=== PATIENT | male | born 1960 | race Caucasian/White ===

== ENCOUNTER → 2018-02-24 | Outpatient (CLI) | payer BC, OTHER ==
[~2018-02-24] MED LIST: ASPIR 8181 MG PO; C-10001000 MG PO; COMPLEX B-1001 EACH PO; FLECAINIDE ACET50 M1 PO; LIPITOR 20 MG T20 M1 PO; OMEGA-31000 M1 PO; TOPROL XL25 MG PO; VITAMIN D3400 UNIT PO; XARELTO20 MG PO
[2018-02-24 08:19] LABS: HEMATOCRIT 43.8 % (42.0-52.0); HEMOGLOBIN 14.3 gm/dL (14.0-18.0); MCH 30.3 pg (26.0-34.0); MCHC 32.8 g/dL (28.0-37.0); MCV 92.4 fL (80.0-100.0); RBC 4.74 mil/uL (4.50-6.00); RDW 14.1 % (10.5-14.5); WBC 3.9 thou/uL (4.0-11.0)
[2018-02-24 08:23] LABS: CALCIUM 9.1 mg/dL (8.5-10.1); CREATININE 0.8 mg/dL (0.7-1.3)
== END ==
LOC: CAT 07:36
PROVIDERS: Internal Medicine Cardiovascular Disease
DX: I48.91 Unspecified atrial fibrillation (principal); M41.84 Other forms of scoliosis, thoracic region

== ENCOUNTER 2018-03-01 06:37 | Observation (INO) | payer BC, OTHER ==
[~2018-03-01] VITALS: Ht 193 cm; Wt 90.3 kg
[2018-03-01] VITALS (7 sets, daily range): BP systolic 104–123; BP diastolic 50–88
--- NOTE | ~2018-03-01 | P ---
[facility] [place] [address] PROCEDURE REPORT Name: OSWALDO QUIÑONES Room #: 219-P [facility] M..#: [id number] Admission: 03/01/18 Attend Phys: Bayron Dunlap MD Discharge: 03/02/18 Date of : 56 Report #: [id number] THIS REPORT FOR: //name// CC: Oswaldo Saba DATE OF SERVICE: 03/01/2018 PREOPERATIVE DIAGNOSIS: Paroxysmal atrial fibrillation. POSTOPERATIVE DIAGNOSIS: Paroxysmal atrial fibrillation. HISTORY: The patient is a 57-year-old with history of paroxysmal atrial fibrillation, here for AFib ablation. PROCEDURES PERFORMED: 1. AFib ablation, CPT code 19096. 2. Program stimulation and pacing after IV, CPT code 43009. 3. 3D mapping EP, CPT code 79606. 4. Intracardiac echo, CPT code 40756. ANESTHESIA: The patient underwent general anesthesia with no anesthesia related complications. DESCRIPTION OF PROCEDURE: The patient underwent informed consent where we discussed the details of the procedure including the risk, which include, but not limited to bleeding, vascular damage, cardiac perforation as well as stroke or KS. He understood these risks and was willing to proceed. The patient was brought to the EP laboratory in a fasting and sedated state and prepped and draped in a sterile fashion. I obtained access to the right femoral vein x 3, placing an 8-Italian, 9-Italian and 7-Italian short sheaths using the modified Seldinger technique. Next, under fluoroscopy, I placed a decapolar catheter into the coronary sinus. Of note, I had a difficult time maintaining the decapolar catheter in the coronary sinus. After I removed it for phrenic nerve pacing, I could not really get it to sit in the CS again. Next, intracardiac ultrasound camera was placed into the right atrium and I created a detailed 3D geometry of the left atrium using CartoSound. At baseline, the patient was in atrial fibrillation with a ventricular cycle length of 735 milliseconds, QRS duration of 75 milliseconds, and a QT interval of 465 milliseconds. His atrial activity in the coronary sinus was consistent with atrial fibrillation. The patient had a CT scan prior to the ablation that showed that the patient had a left common ostium, and a right superior and right inferior pulmonary veins. Using CartoSound I created a 3D geometry of the left atrium and merged this with the CT scan. Next, a transseptal was performed [address] [address] PROCEDURE REPORT Name: OSWALDO QUIÑONES Room #: 219-P [facility] Liza Arita#: [id number] Admission: 03/01/18 Attend Phys: Bayron Dunlap MD Discharge: 03/02/18 Date of : 56 Report #: [id number] using an SL1 sheath and a [place] needle. The transseptal was straightforward without any issues. Once I was in the left atrium, the patient did develop marked bradycardia down into the 20s and 30s in atrial fibrillation. As such, I did open up a bag of isoproterenol and then I quickly obtained access to the left femoral vein and placed a 6-Italian short sheath and a quadripolar catheter into the right ventricle for backup pacing. After about 2-3 minutes the pulse improved into the 50s-60s range. Intracardiac ultrasound was performed during this bradycardic episode and there was clearly no evidence of an effusion or anything. I think he likely had a vasovagal reaction, which may have been precipitated by the transseptal puncture. I then placed a Lasso catheter into the left atrium and created a detailed 3D geometry of the left atrium with specific emphasis of the left atrial appendage, left common ostium, which had a superior and inferior branch as well as the right superior and right inferior pulmonary veins. Next, I exchanged the SL1 sheath for the cryo sheath and placed the cryoballoon into the left atrium. I therefore started performing the ablation procedure. I first turned my attention to the left common pulmonary vein. I was able to place the balloon into the superior pole of this vein and performed two 4-minute freezes. I could tell that I was slowing down conduction, but had not resulted in isolation. I therefore attempted to place my Achieve catheter into the lower branch of the left common ostium, but it continued to go into the upper branch. I therefore pulled the balloon down and focused on isolating the lower pole of the left common ostium. I performed two 4-minute freezes within the lower aspect of this vessel and the vessel did isolate within 64 seconds of the first freeze of the left inferior aspect of the common ostium. I then interrogated both the upper and lower branches of the left common ostium using the Achieve catheter and this was clearly isolated. I then placed the decapolar catheter into the subclavian vessel and performed phrenic nerve pacing from here. I then placed the cryoballoon into the right superior pulmonary vein. I performed a 4-minute freeze. I could not monitor the electrograms during this freeze, but after this freeze it appeared that the ostium was isolated. I performed a second 3-minute freeze and then re-interrogated the vessel and it was clearly isolated as well. While I was freezing the right-sided veins, I performed phrenic nerve pacing and there was never any phrenic nerve compromise. I then turned my attention to the right inferior pulmonary vein and I performed two 4-minute freezes. This vein isolated within 30 seconds of the second freeze. Next, I removed the cryoballoon from the cryo sheath and placed a Lasso catheter into the left superior pulmonary vein. I then performed a 200 joule synchronized cardioversion with latter-day of sinus rhythm. In sinus rhythm, his sinus cycle length was 960 milliseconds, FL interval was 180, QRS duration was 70, QT interval was 415 milliseconds, AH interval was 95 milliseconds and his HV interval was 48 milliseconds. I then created a post-ablation voltage map and this demonstrated that we had performed a wide circumferential ablation of the left common ostium and the right-sided veins. It appeared that there was evidence of entrance and exit block. [facility] [address] [place] [address] PROCEDURE REPORT Name: OSWALDO QUIÑONES Room #: 219-P [facility] Allison.#: [id number] Admission: 03/01/18 Attend Phys: Bayron Dunlap MD Discharge: 03/02/18 Date of : 56 Report #: [id number] Next, a basic EP study was performed. Atrial burst pacing was performed from the high right atrium and AV block was noted at 450 milliseconds. AV darlene ERP was noted at 350 milliseconds at a [address] cycle length. There was no SVT or induction of atrial fibrillation. Next, isoproterenol infusion was turned on at 1 mcg per minute and AV block was noted at 440 milliseconds. Atrial burst pacing was performed and again I could not induce SVT nor atrial fibrillation. As such, using intracardiac ultrasound, I once again verified that there was no pericardial effusion. The patient then received systemic protamine and then when the ACT was within acceptable range, catheters and sheaths were pulled and hemostasis was obtained. The patient awoke neurologically and hemodynamically intact with no complications and no significant bleeding. CONCLUSIONS: 1. Successful atrial fibrillation ablation with isolation of the left common ostium in the right superior and right inferior pulmonary veins. 2. Normal SA darlene function. 3. Normal AV darlene function. 4. Normal His-Purkinje function. 5. No other inducible arrhythmias on or off isoproterenol. <ELECTRONICALLY SIGNED> By: Bayron Dunlap MD 03/04/18 1314 1157 1800 Bayron Dunlap MD /nt
[2018-03-01 07:34] LABS: BASOPHILS 0.6 % (0.0-2.0); EOSINOPHILS 2.5 % (0.0-3.0); HEMATOCRIT 49.8 % (42.0-52.0); HEMOGLOBIN 16.4 gm/dL (14.0-18.0); LYMPHOCYTES 39.9 % (24.0-44.0); MCH 30.8 pg (26.0-34.0); MCV 93.2 fL (80.0-100.0); MONOCYTES 11.6 % (1.0-8.0); PLATELET COUNT 216 thou/uL (150-400); POLYS 45.4 % (36.0-66.0); RBC 5.35 mil/uL (4.50-6.00); RDW 14.4 % (10.5-14.5); WBC 4.4 thou/uL (4.0-11.0)
[2018-03-01 07:46] LABS: APTT 29.2 Seconds (24.5-32.8); PROTIME 9.9 Seconds (9.3-11.4)
[2018-03-01 07:52] LABS: ALBUMIN 3.6 g/dL (3.4-5.0); CALCIUM 8.9 mg/dL (8.5-10.1); CREATININE 0.9 mg/dL (0.7-1.3); POTASSIUM 3.5 mmol/L (3.5-5.1); TOTAL BILIRUBIN 0.5 mg/dL (<0.1-1.0)
[2018-03-02 04:00] VITALS: BP 110/68
[2018-03-02 08:00] VITALS: BP 129/59
[2018-03-02] MEDS ORDERED: FLECAINIDE ACET50 M1 PO (08:17)
[2018-03-02 10:23] VITALS: BP 110/68
[2018-03-02 11:08] VITALS: BP 110/68
== END 2018-03-02 11:30 | disposition home or self-care (01) ==
LOC: CATH 06:37 → 2N 12:08 → CATH 12:48 → ENTRNSPT 03-02 11:23 → EDTRNSPTSTS 03-02 11:25 → 2N 03-02 11:30
PROVIDERS: Internal Medicine Cardiovascular Disease
DX: I48.0 Paroxysmal atrial fibrillation (principal); E78.5 Hyperlipidemia, unspecified; Z79.899 Other long term (current) drug therapy
CPT/HCPCS: 62110; 62900; 65020; 65040; 70005

== ENCOUNTER → 2019-03-04 | Outpatient (CLI) | payer OTHER | LOC: CAT 14:00 | DX: Z13.6 Encounter for screening for cardiovascular disorders (principal); E78.00 Pure hypercholesterolemia, unspecified; I25.10 Atherosclerotic heart disease of native coronary artery without angina pectoris ==